=== PATIENT | male | born 1955 | race African-American/Black ===

== ENCOUNTER 2020-09-13 05:31 | Inpatient (IN) ==
[2020-08-31 11:07] LABS: Basophils % 0.6 % (0.0-0.8); Eosinophils # 0.2 10*3/uL (0.0-0.87); Eosinophils % 3.6 % (0.00-10.9); Hematocrit 41.8 VOL% (42.0-52.0); Immature Granulocytes % 0.6 %; Immature Granulocytes Absolute 0.03 #; Lymphocytes # 1.9 10*3/uL (1.4-4.0); Lymphocytes % 36.9 % (21.2-54.2); Mean Corpuscular HGB Conc 33.5 GM/DL (32-36); Mean Corpuscular Volume 88.4 FL (87-102); Mean Platelet Volume 10.7 FL (9.6-12.0); Neutrophils % 47.3 % (38.7-73.9); Platelet Count 234 T/CUMM (130-400); Red Blood Count 4.73 MC/CUMM (3.8-5.5); Red Cell Distribution Width 12.5 % (9.3-17.3)
[2020-08-31 11:25] LABS: Calcium 8.7 MG/DL (8.5-10.1)
[2020-09-13] MEDS ORDERED: cefTRIAXone 1,000 MG in SODIUM CHLORIDE 0.9% 100 ML IV ONE (05:50)
[2020-09-13] MEDS ORDERED: fentaNYL 100 MCG/2 ML VIAL ONE ×2 (06:09→11:22)
[2020-09-13] MEDS ORDERED: MIDAZOLAM 2 MG/2 ML VIAL ONE (06:10)
[2020-09-13] MEDS ORDERED: BUPIVACAINE MPF 0.25% 30 ML VIAL ONE (06:26)
[2020-09-13] MEDS ORDERED: LIDOCAINE 1% 5 ML VIAL ONE (06:27)
[2020-09-13] MEDS ORDERED: DIAZEPAM 5 MG TABLET PO ONE (06:33)
[2020-09-13] MEDS ORDERED: SODIUM PHOSPHATE ENEMA 133 ML BOTTLE RECTAL ONE (06:38)
[2020-09-13] MEDS ORDERED: DIAZEPAM 5 MG TABLET ONE (06:38)
[2020-09-13] MEDS ORDERED: SODIUM PHOSPHATE ENEMA 133 ML BOTTLE RECTAL STA (06:40)
[2020-09-13] MEDS ORDERED: LACTATED RINGERS 1,000 ML IV SCH (07:00)
[2020-09-13] MEDS ORDERED: ePHEDrine 50 MG/ML VIAL ONE (08:57)
[2020-09-13] MEDS ORDERED: PHENYLEPHRINE 10 MG/1 ML VIAL IV ONE (09:00)
[2020-09-13] MEDS ORDERED: PHENYLEPHRINE 1 MG/10 ML SYRINGE IV ONE (09:00)
[2020-09-13] MEDS ORDERED: DEXAMETHASONE 4 MG/1 ML VIAL ONE (09:12)
[2020-09-13] MEDS ORDERED: ONDANSETRON 4 MG/2 ML VIAL ONE (09:12)
[2020-09-13] MEDS ORDERED: propofoL 200 MG/20 ML VIAL IV ONE (09:12)
[2020-09-13] MEDS ORDERED: ROCURONIUM 50 MG/5 ML VIAL IV ONE (09:13)
[2020-09-13] MEDS ORDERED: SUGAMMADEX 200 MG/2 ML VIAL IV ONE (10:26)
[2020-09-13] MEDS ORDERED: ACETAMINOPHEN 1,000 MG/100 ML VIAL IV ONE (10:27)
[2020-09-13] MEDS ORDERED: SEVOFLURANE 1 UNIT/15 MINUTE INH ONE (11:15)
[2020-09-13] MEDS ORDERED: ONDANSETRON 4 MG/2 ML VIAL IV PRN ×2 (11:26→12:07)
[2020-09-13] MEDS ORDERED: PROMETHAZINE 25 MG/1 ML VIAL IM PRN (11:26)
[2020-09-13] MEDS ORDERED: LACTULOSE 20 GM/30 ML UDCUP PO PRN (11:26)
[2020-09-13] MEDS ORDERED: HYDROmorphone 2 MG/1 ML VIAL IV PRN ×2 (11:26→12:07)
[2020-09-13] MEDS ORDERED: hydrALAZINE 25 MG TABLET PO PRN (11:30)
[2020-09-13] MEDS ORDERED: oxyCODONE/ACETAMINOPHEN 5-325 MG TABLET PO PRN (11:33)
[2020-09-13 12:06] LABS: Bilirubin,Urine Negative (Negative); Blood, Urine Moderate mg/dL (Negative); Glucose,Urine (UA) Negative (Negative); Ketones,Urine Negative (Negative); Mucus,Urine Occasional /LPF (Occasional); Nitrite,Urine Negative (Negative); Protein,Urine Negative; RBC,Urine 3 /HPF (0-4); Squamous Epithelial Cell,Urine Occasional /HPF (0-10); Urine Appearance CLEAR (Clear); Urine Color Yellow (Yellow); Urine Specific Gravity 1.017 (1.001-1.035); Urine Urobilinogen < 2.0 EU/DL (0.2-1.0); WBC,Urine <1 /HPF (0-6)
[2020-09-13] MEDS ORDERED: PROMETHAZINE INJ 25 MG in SODIUM CHLORIDE 0.9% 50 ML IV PRN (12:07)
[2020-09-13] MEDS ORDERED: MEPERIDINE 25 MG/1 ML VIAL IV PRN (12:07)
[2020-09-13] MEDS ORDERED: diphenhydrAMINE 50 MG/1 ML VIAL IV PRN (12:07)
[2020-09-13 13:05] LABS: Basophils % 0.1 % (0.0-0.8); Eosinophils % 0.1 % (0.00-10.9); Hematocrit 42.2 VOL% (42.0-52.0); Hemoglobin 14.4 GM/DL (14.0-18.0); Immature Granulocytes % 0.6 %; Immature Granulocytes Absolute 0.08 #; Lymphocytes # 0.8 10*3/uL (1.4-4.0); Lymphocytes % 5.9 % (21.2-54.2); Mean Corpuscular HGB Conc 34.1 GM/DL (32-36); Mean Corpuscular Volume 88.7 FL (87-102); Mean Platelet Volume 10.1 FL (9.6-12.0); Monocytes % 3.2 % (1.7-12.7); Neutrophils % 90.1 % (38.7-73.9); Platelet Count 226 T/CUMM (130-400); Red Blood Count 4.76 MC/CUMM (3.8-5.5); Red Cell Distribution Width 12.4 % (9.3-17.3); White Blood Count 13.4 T/CUMM (4-12)
[2020-09-13 13:27] LABS: Calcium 8.9 MG/DL (8.5-10.1); Osmolality,Calculated 290.3 MOS/KG (273-304)
[2020-09-13] MEDS: SODIUM CHLORIDE 0.9% 1,000 ML IV SCH (14:41)
[2020-09-13] MEDS: ACETAMINOPHEN 325 MG TABLET PO SCH ×2 (14:41→16:39)
[2020-09-13] MEDS: DOCUSATE SODIUM 100 MG CAPSULE PO SCH (20:39)
[2020-09-14] MEDS: ACETAMINOPHEN 325 MG TABLET PO SCH ×4 (00:05→17:32)
[2020-09-14 05:40] LABS: Basophils % 0.1 % (0.0-0.8); Eosinophils % 0.1 % (0.00-10.9); Hematocrit 39.1 VOL% (42.0-52.0); Hemoglobin 13.3 GM/DL (14.0-18.0); Immature Granulocytes % 0.3 %; Immature Granulocytes Absolute 0.03 #; Lymphocytes # 1.6 10*3/uL (1.4-4.0); Mean Corpuscular Volume 88.1 FL (87-102); Monocytes % 9.9 % (1.7-12.7); Neutrophils % 71.6 % (38.7-73.9); Platelet Count 218 T/CUMM (130-400); Red Blood Count 4.44 MC/CUMM (3.8-5.5); Red Cell Distribution Width 12.6 % (9.3-17.3); White Blood Count 8.6 T/CUMM (4-12)
[2020-09-14 06:06] LABS: Osmolality,Calculated 284.3 MOS/KG (273-304)
[2020-09-14] MEDS ORDERED: BISACODYL 10 MG SUPP RECTAL ONE (07:54)
[2020-09-14] MEDS: DOCUSATE SODIUM 100 MG CAPSULE PO SCH ×2 (08:48→20:44)
[2020-09-14] MEDS: amLODIPine 10 MG TABLET PO SCH (08:48)
[2020-09-14] MEDS: LEVOFLOXACIN 500 MG TABLET PO SCH (08:48)
[2020-09-14] MEDS: OXYBUTYNIN XL 10 MG TABLET PO SCH (08:48)
[2020-09-14] MEDS: SODIUM CHLORIDE 0.9% 1,000 ML IV SCH (10:07)
[2020-09-15] MEDS: ACETAMINOPHEN 325 MG TABLET PO SCH ×3 (00:01→11:39)
[2020-09-15] MEDS: amLODIPine 10 MG TABLET PO SCH (09:05)
[2020-09-15] MEDS: OXYBUTYNIN XL 10 MG TABLET PO SCH (09:05)
[2020-09-15] MEDS: DOCUSATE SODIUM 100 MG CAPSULE PO SCH (09:05)
[2020-09-15] MEDS: LEVOFLOXACIN 500 MG TABLET PO SCH (09:06)
[2020-09-15 12:11] VITALS: BP 141/68
== END 2020-09-15 16:03 | disposition home or self-care (01) | DRG 708 ==
LOC: N.OR 05:31 → N.SDSINP 05:34 → N.5E 14:25
PROVIDERS: ADMIT Surgery; ATTEND Surgery